=== PATIENT | female | born 1975 | race African-American/Black ===

== ENCOUNTER 2016-06-08 13:14 | Emergency (ER) | payer MEDICAID ==
[~2016-06-08] VITALS: Ht 170.2 cm; Wt 85.3 kg
[2016-06-08 13:46] LABS: Urine Bilirubin Negative (Negative); Urine Blood TRACE /uL (Negative); Urine Color Yellow (Yellow); Urine Glucose Normal (Normal); Urine Ketone Negative (Negative); Urine Mucus FEW (None Seen); Urine Nitrite Negative (Negative); Urine RBC 7 /hpf (0 - 4); Urine Squamous Epithelial Cell FEW /hpf (<5); Urine Urobilinogen Normal (Negative)
[2016-06-08 15:23] LABS: Albumin 4.3 g/dL (3.4-5.0); BUN/Creatinine Ratio 16.9; Bilirubin, Total 0.4 mg/dL (0.2-1.0); Potassium 3.5 mmol/L (3.5-5.1); Total Protein 8.6 g/dL (6.4-8.2)
[2016-06-08] MEDS: MECLIZINE HCL 25 MG TAB PO ONE (15:35)
[2016-06-08 16:43] LABS: Basophils # (auto) 0 uL; Basophils % (auto) 0.5 % (0.0-2.0); Eosinophils # (auto) 0.1 uL; Eosinophils % (auto) 1.1 % (0.0-7.0); Hematocrit 43.1 % (36.0-46.0); Hemoglobin 14.2 g/dL (12.2-16.2); Lymphocytes % (auto) 37.7 % (10.0-50.0); Mean Corpuscular Hemoglobin 29.4 pg (28.0-32.0); Mean Corpuscular Hgb Conc. 32.9 g/dL (32.0-36.0); Mean Corpuscular Volume 89.4 fL (80.0-100.0); Mean Platelet Volume 10.5 fL (7.4-10.4); Monocytes # (auto) 0.7 uL; Monocytes % (auto) 8.8 % (0.0-12.0); Neutrophils # (auto) 4.1 uL; Neutrophils % (auto) 51.9 % (37.0-80.0); Platelet Count (auto) 260 10^3/uL (140-450); Red Cell Distribution Width 14.6 % (11.6-16.0); SUSPECT VIEW TRANSMISSION
[2016-06-08 18:02] VITALS: BP 107/78
[2016-06-08 20:17] LABS: Platelet Estimate Adequate
[2016-06-08 20:18] LABS: Giant Platelets Few
== END 2016-06-08 18:43 | disposition home or self-care (01) ==
LOC: ER 13:19
DX: H83.09 Labyrinthitis, unspecified ear (principal)
CPT/HCPCS: 36415; 70450; 80053; 81001; 81025; 85025; 99285; J8597